=== PATIENT | female | born 1965 | race Caucasian/White ===

== ENCOUNTER 2016-10-20 17:02 | Emergency (ER) | payer OTHER ==
[2016-10-20 17:23] VITALS: RESP 18; TEMP 98; O2SAT 96
[2016-10-20] MEDS ORDERED: ONDANSETRON 4 MG/2 ML VIAL IVP ONE (17:31)
[2016-10-20] MEDS ORDERED: KETOROLAC 30 MG/1 ML SDV IVP ONE (17:31)
[2016-10-20] MEDS ORDERED: NS 1,000 ML IV ONE (17:31)
[2016-10-20] MEDS ORDERED: HYDROmorphONE/DILAUDID 1 MG/ML SYR IVP ONE (17:32)
--- NOTE | 2016-10-20 17:57 | EDPHY ---
H & P Stated Complaint: c/o migraine ZAMBRANO x 3 days- last took Imatrex/xanex @ 1300 today with out rel Time Seen by Provider: 10/20/16 17:22 HPI/ROS: This patient complains of a headache of 3 days duration that was right-sided hemicranial is now left-sided hemicranial throbbing in nature 8/10 intensity worse with movement. It is associated with photophobia and hyperacusis. The symptoms are similar to her prior migraines but usually her migraines do not last this long. She tried Imitrex at home as well as Maxalt and Xanax without relief and comes in for further evaluation. She reports associated nausea but no vomiting. ROS: No fevers or chills. No other constitutional symptoms HEENT: No recent URI symptoms or trauma. Pulmonary: No complaints Cardiovascular: No lightheadedness. No chest pain. GI: No belly pain. : No urinary symptoms Integumentary: No skin rash Neuro: No focal numbness tingling weakness. No visual changes. No confusion. Endocrine: No complaints Complete review of symptoms is otherwise negative Source: Patient Exam Limitations: No limitations - Personal History Current Tetanus Diphtheria and Acellular Pertussis (TDAP): Yes - Medical/Surgical History Hx Asthma: No Hx Chronic Respiratory Disease: No Hx Diabetes: No Hx Cardiac Disease: No Hx Renal Disease: No Hx Cirrhosis: No Hx Alcoholism: No Hx HIV/AIDS: No Hx Splenectomy or Spleen Trauma: No Other PMH: Med hx-migraines,endometriosis, gerd. surg-hysterectomy November 2014 - Family History Significant Family History: No pertinent family hx - Social History Smoking Status: Never smoked Alcohol Use: None Drug Use: None - Physical Exam Exam: Physical exam: Vital signs are normal General: Patient is in no acute distress. HEENT: Is no external evidence of trauma on exam. Eyes: Pupils are equal and reactive to light. Extraocular motions are intact. Optic fundi: Clear with no papilledema or hemorrhage. Nose atraumatic. Ears: Clear bilaterally with no hemotympanum. Oropharynx: No dental trauma or malocclusion. No intraoral lacerations. Eyes: Pupils are equal and reactive to light. Extraocular motions are intact. Optic fundi: Clear with no papilledema or hemorrhage. Lungs: Clear to auscultation bilaterally Neck: Supple no meningismus. Cardiac: Regular rate and rhythm no murmur gallop or rub. Abdomen: Soft nontender no organomegaly Neuro: GCS of 15. Cranial nerves II through XII intact. Cerebellar exam is normal as judged by symmetric rapid hand movements bilaterally. No pronator drift. No sensory or motor deficits are appreciated. Initial differential diagnosis: Migraine, tension headache, PILING SETTER lesion, intracranial bleed Constitutional: Initial Vital Signs Temperature (C) 36.6 C 10/20/16 17:21 Heart Rate 82 10/20/16 17:21 Respiratory Rate 18 10/20/16 17:21 Blood Pressure 162/108 H 10/20/16 17:21 O2 Sat (%) 96 10/20/16 17:21 O2 Delivery Mode Room Air Allergies/Adverse Reactions: prochlorperazine edisylate [From Compazine] Allergy (Severe, Verified 06/16/15 14:06) Anaphylaxis prochlorperazine maleate [From Compazine] Allergy (Severe, Verified 06/16/15 14: 06) Anaphylaxis Sulfa (Sulfonamide Antibiotics) Allergy (Mild, Verified 06/16/15 14:06) Rash bupropion HCl [From Wellbutrin] Allergy (Verified 06/16/15 14:06) SEIZURE sulfamethoxazole [From Sulfatrim] Allergy (Verified 06/16/15 14:06) tramadol Allergy (Verified 06/16/15 14:06) trimethoprim [From Sulfatrim] Allergy (Verified 06/16/15 14:06) Home Medications: Medication Instructions Recorded ALPRAZolam [Xanax 0.5 MG (RX)] 09/17/12 Cyclobenzaprine [Flexeril 10 MG 10 mg PO TID 09/17/12 (RX)] Ondansetron Odt [Zofran Odt 4 mg 09/17/12 (RX)] Oxycodone HCl [Oxecta] 7.5 mg PO 09/17/12 Sucralfate [Carafate 1 GM (*)] 09/17/12 Maxalt 06/16/15 oxyCODONE/APAP 5/325 [Percocet 1 - 2 tab PO Q6PRN PRN #18 tab 06/16/15 5/325 (*)] Maxalt 10/20/16 Medical Decision Making ED Course/Re-evaluation: Patient reports anaphylaxis to Compazine so held off on Reglan IV normal saline bolus, Toradol, Decadron 10 mg, Benadryl IV and 0.8 mg with resolution of headache down to mild discomfort. Patient is sent home in stable condition with resolution of her nausea near resolution of her headache. Discussion: Findings are clinically consistent with migraine headache improved with treatment. I find no evidence currently of PILING SETTER infection, intracranial bleed or other concerning findings. However, the patient understands need to go back to the emergency department should she have any significant worsening of her symptoms despite the treatment plan will follow up with her primary care physician or neurologist. - Data Points Medications Given: Discontinued Medications Dexamethasone (Decadron Injection) 10 mg IVP EDNOW ONE Stop: 10/20/16 18:43 Last Admin: 10/20/16 18:47 Dose: 10 mg Diphenhydramine HCl (Benadryl Injection) 50 mg IVP EDNOW ONE Stop: 10/20/16 17:32 Last Admin: 10/20/16 17:32 Dose: 50 mg Hydromorphone HCl (Dilaudid) 0.8 mg IVP EDNOW ONE Stop: 10/20/16 17:33 Last Admin: 10/20/16 17:30 Dose: 0.8 mg Sodium Chloride (Ns) 1,000 mls @ 0 mls/hr IV ONCE ONE PRN Reason: Wide Open Stop: 10/20/16 17:32 Last Admin: 10/20/16 18:18 Dose: 1,000 mls Ketorolac Tromethamine (Toradol) 30 mg IVP EDNOW ONE Stop: 10/20/16 17:32 Last Admin: 10/20/16 17:31 Dose: 30 mg Ondansetron HCl (Zofran) 4 mg IVP EDNOW ONE Stop: 10/20/16 17:32 Last Admin: 10/20/16 17:35 Dose: 4 mg Departure - Departure Disposition: Home, Routine, Self-Care Clinical Impression: Migraine Qualifiers: Migraine type: without aura Status migrainosus presence: with status migrainosus Intractability: not intractable Qualified Code(s): G43.001 - Migraine without aura, not intractable, with status migrainosus Condition: Good Instructions: Migraine Headache (ED) Additional Instructions: Diagnosis: Migraine You received Toradol, Decadron, Benadryl and Dilaudid for your migraine Plan: Drink plenty fluids Continue current medications Follow up with your primary care physician or neurologist for any ongoing symptoms. For the emergency department for any significant worsening despite the treatment plan Referrals: Akbar Guevara MD [Primary Care Provider] - As per Instructions
[2016-10-20] MEDS ORDERED: DEXAMETHASONE 10 MG/ML VIAL IVP ONE (18:42)
[2016-10-20 18:54] VITALS: BP 110/62; PULSE 78
== END 2016-10-20 19:06 | disposition home or self-care (01) ==
LOC: CED 17:02
DX: G43.001 Migraine without aura, not intractable, with status migrainosus (principal)
CPT/HCPCS: 96374; J1170; J1200; J1885; J2405

== ENCOUNTER → 2018-09-06 | Outpatient (CLI) | payer OTHER ==
[~2018-09-06] MED LIST: IOPAMIDOL (ISOVUE 370) 100 ML BTL IV ONE
== END ==
LOC: FIMAGING 11:48
PROVIDERS: ATTEND Surgery
DX: I77.79 Dissection of other specified artery (principal); I77.89 Other specified disorders of arteries and arterioles; I70.8 Atherosclerosis of other arteries; I71.2 Thoracic aortic aneurysm, without rupture
CPT/HCPCS: Q9967

== ENCOUNTER 2018-09-18 18:32 | Emergency (ER) | payer OTHER ==
--- NOTE | 2018-09-18 19:06 | EDPHY ---
H & P Time Seen by Provider: 09/18/18 18:47 HPI/ROS: CHIEF COMPLAINT: Left leg pain HISTORY OF PRESENT ILLNESS: Patient is a 53-year-old female on Plavix who presents emergency department with left leg pain and bruising over her left foot. 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 She subsequently followed up with Dr. Wilner Kemp. Dr. Kemp ordered a repeat CT angiogram of the chest and abdomen pelvis. She was found to have a mesenteric artery dissection with thrombus that appears similar to her previous images. She is also found to have an aneurysm. Because of this she was referred to Dr. Gregory from Cardiovascular surgery. Patient comes the emergency department today because she has left leg pain. Initially started inner thigh now has moved down to her calf. Pain is mild. She also noticed bruising over the dorsal aspect of her left foot. She has had no foot pain or recent trauma. No numbness or tingling. REVIEW OF SYSTEMS: 10 systems were reveiwed and are negative with the exception of the elements mentioned in the history of present illness. Past Medical/Surgical History: Includes mesenteric artery dissection, thoracic artery aneurysm, migraine, endometriosis, GERD Social history: Patient does not smoke. Smoking Status: Never smoked Physical Exam: Vitals noted GENERAL: Well-appearing, in no acute distress, alert. HEENT: Eyes normal to inspection, normal pharynx, no signs of dehydration. NECK: Normal, supple. RESPIRATORY: Clear to auscultation bilaterally, no rales, rhonchi or wheezing. CVS: Regular rate and rhythm, no rubs, murmurs, or gallops. ABDOMEN: Soft, nontender, nondistended, no organomegaly. BACK: Normal to inspection, no CVA tenderness. SKIN: Normal color, no rash, warm, dry. No pallor. EXTREMITIES: No pedal edema, no calf tenderness, no Homans sign or cords, no joint swelling. Patient has mild bruising over the dorsal aspect of her foot. This is mildly tender to palpation. There is no significant swelling. Patient has no petechiae. Brisk capillary refill. Normal DP and PT pulses. Normal popliteal pulse. Normal femoral pulse. The leg appears normal in color. It is not cold to touch. NEURO/PSYCH: Alert and oriented, normal mood and affect, normal motor sensory exam. Constitutional: Initial Vital Signs Temperature (C) 37.1 C 09/18/18 18:40 Heart Rate 73 09/18/18 18:40 Respiratory Rate 16 09/18/18 18:40 Blood Pressure 144/104 H 09/18/18 18:40 O2 Sat (%) 97 09/18/18 18:40 O2 Delivery Mode Room Air Allergies/Adverse Reactions: prochlorperazine edisylate [From Compazine] Allergy (Severe, Verified 06/16/15 14:06) Anaphylaxis prochlorperazine maleate [From Compazine] Allergy (Severe, Verified 06/16/15 14: 06) Anaphylaxis Sulfa (Sulfonamide Antibiotics) Allergy (Mild, Verified 06/16/15 14:06) Rash bupropion HCl [From Wellbutrin] Allergy (Verified 06/16/15 14:06) SEIZURE NSAIDS (Non-Steroidal Anti-Inflamma Allergy (Verified 09/18/18 18:38) sulfamethoxazole [From Sulfatrim] Allergy (Verified 06/16/15 14:06) tramadol Allergy (Verified 06/16/15 14:06) trimethoprim [From Sulfatrim] Allergy (Verified 06/16/15 14:06) Home Medications: Medication Instructions Recorded ALPRAZolam [Xanax 0.5 MG (RX)] 09/17/12 Cyclobenzaprine [Flexeril 10 MG 10 mg PO TID 09/17/12 (RX)] Ondansetron Odt [Zofran Odt 4 mg 09/17/12 (RX)] Oxycodone HCl [Oxecta] 7.5 mg PO 09/17/12 Sucralfate [Carafate 1 GM (*)] 09/17/12 Maxalt 06/16/15 oxyCODONE/APAP 5/325 [Percocet 1 - 2 tab PO Q6PRN PRN #18 tab 06/16/15 5/325 (*)] Maxalt 10/20/16 Plavix 09/18/18 Medical Decision Making - Diagnostics Imaging Results: Imaging Impressions Extremity Venous Study 09/18/18 19:07 Impression: No evidence of deep vein thrombosis. Anna Marie Pineda was notified of these findings by telephone at 7:59 PM on 2018 ED Course/Re-evaluation: In the emergency department I discussed possible etiologies with the patient. I answered all her questions. At this time I do not feel she needs a CT angiogram of her leg. An ultrasound of her left lower extremity was ordered. Ultrasound: Please refer the dictated report. No acute disease noted. I discussed the results with the patient. I answered all her questions. On recheck her leg appear normal. It was warm to touch. There is no discoloration. She had a strong DP, PT and popliteal pulse. The patient was given warnings prior to leaving. She will return with worsening symptoms. Differential Diagnosis: My differential includes but not limited to DVT, arterial dissection, arterial aneurysm, contusion Departure - Departure Disposition: Home, Routine, Self-Care Clinical Impression: Leg pain Qualifiers: Laterality: left Qualified Code(s): M79.605 - Pain in left leg Condition: Good Instructions: Leg Pain (ED) Additional Instructions: Return with increasing pain, swelling, discoloration, coolness, or any other concerns. Referrals: Akbar Guevara MD [Primary Care Provider] - 2-3 days, if not improved Wilner Kemp MD [Medical Doctor] - 2-3 days, if not improved
[2018-09-18 20:18] VITALS: BP 134/89
== END 2018-09-18 20:17 | disposition home or self-care (01) ==
DX: M79.605 Pain in left leg (principal); I70.8 Atherosclerosis of other arteries; I71.2 Thoracic aortic aneurysm, without rupture; Z79.02 Long term (current) use of antithrombotics/antiplatelets

== ENCOUNTER 2018-11-02 11:37 | Inpatient (IN) | payer OTHER ==
[2018-11-02] MEDS ORDERED: NS 1,000 ML IV ONE (12:56)
[2018-11-02] MEDS ORDERED: ASPIRIN EC 325 MG TAB PO ONE (12:56)
[2018-11-02] MEDS ORDERED: FAMOTIDINE 20 MG TAB PO ONE (12:56)
[2018-11-02] MEDS ORDERED: diphenhydrAMINE 25 MG CAP PO ONE (12:56)
[2018-11-02] MEDS ORDERED: DIAZEPAM 5 MG TAB PO ONE (12:56)
[2018-11-02] MEDS ORDERED: MIDAZOLAM 2 MG/2 ML VIAL ONE (13:04)
[2018-11-02] MEDS ORDERED: LIDOCAINE 1% 5 ML SDV ONE (13:04)
[2018-11-02] MEDS ORDERED: fentaNYL 100 MCG/2 ML INJ ONE (13:04)
[2018-11-02] MEDS ORDERED: IOPAMIDOL (ISOVUE 370) 100 ML BTL IV ONE (13:04)
[2018-11-02] MEDS ORDERED: HEPARIN 10,000 UNIT/10 ML MDV (1,000 UNIT/ML) ONE (13:20)
[2018-11-02] MEDS ORDERED: VERAPAMIL 5 MG/2 ML VIAL ONE (13:20)
[2018-11-02 13:26] LABS: PLATELET COUNT 236 10^3/uL (150-400)
[2018-11-02 13:34] LABS: INR 1.05 (0.83-1.16); PROTIME(PATIENT) 13.3 SEC (12.0-15.0)
--- NOTE | 2018-11-02 13:38 | PDPROPOC ---
Sedation Plan of Care Sedation Plan of Care: vital signs stable, mental status noted, patient educated of risks, benefits, alternatives, patient can tolerate sedation ASA Classification: ASA 1 Planned drugs: fentanyl, midazolam Mallampati Score: Class 1 Mallampati Reference Image: Patient passed 3-3-2 rule?: Yes
--- NOTE | 2018-11-02 13:38 | PDHPUP ---
History & Physical Update H&P update statement: This history and physical update is based on an assessment of the patient which was completed after admission or registration (within 24 hours), but prior to the surgery/procedure. H&P update: H&P reviewed & patient examined, no change in patient's condition since H&P completed
--- NOTE | 2018-11-02 14:51 | PDDXCAT ---
Diagnostic Cath Note - . Date: 11/02/18 Java User Interface Developer: Shaquille Indication: other (Preoperative angiogram prior to planned aortic root replacement surgery.) - Procedure Access: right wrist Procedure: left heart catheterization, coronary angiography, left ventriculogram - Materials Left Heart Cath size: 4F Left Heart Cath materials: JL3.5, JR4.0, pigtail - Findings-Left Heart Catheterization LM: Angiographically normal. Appropriate bifurcation into the LAD and circumflex. LAD: Moderate caliber vessel. 2 diagonal branches originate prior to termination at the apex. Angiographically normal. LCX: 2 obtuse marginal branches noted. Angiographically normal. RCA: Dominant vessel. The PDA is identified and a single posterolateral branch are noted.. Angiographically normal. LVEF: 65%. Wall motion: Normal. Complications: None. Estimated blood loss: <50ml Closure method: TR Band Assessment: Angiographically normal epicardial coronary arteries. Preserved left ventricular systolic function with ejection fraction 65%. Aneurysmal dilatation of the ascending aorta. Plan: There are plans for the patient to undergo aortic root replacement surgery tomorrow.
[2018-11-02] MEDS ORDERED: ATROPINE SULFATE 1 MG/10 ML SYR IVP PRN (15:09)
[2018-11-02] MEDS ORDERED: SUCRALFATE 1 GM TAB PO PRN (15:20)
[2018-11-02] MEDS ORDERED: ACETAMINOPHEN 500 MG TAB PO PRN (15:20)
[2018-11-02] MEDS ORDERED: ACET/CAFFEINE/BUTA FIORICET 1 EACH TAB PO PRN (15:20)
--- NOTE | 2018-11-02 16:19 | PDGENHP ---
History and Physical - Chief Complaint asc ao aneurysm - History of Present Illness 53F with ascending aortic aneurysm (4.4 x 4.1) discovered during hospitalization for a spontaneous SMA dissection. Pt admitted today in advance of aneurysm repair for risk stratification. Coronary angiography today revealed angiographically normal epicardial coronary arteries and a preserved left ventricular systolic function with EF 65%. Pt reports no change in health since evaluated in clinic. She states she has vague chest pain over the past 2 years which she attributes to anxiety. She denies weakness, lethargy, syncope, light- headedness, chest palpitations, SOB, PND, orthopnea, abdominal pain, or LE edema. She denies h/o chest surgery. She denies tobacco abuse. She drinks alcohol socially. History Information - Allergies/Home Medication List Allergies/Adverse Reactions: prochlorperazine edisylate [From Compazine] Allergy (Severe, Verified 11/01/18 09:50) Anaphylaxis prochlorperazine maleate [From Compazine] Allergy (Severe, Verified 11/01/18 09: 50) Anaphylaxis Sulfa (Sulfonamide Antibiotics) Allergy (Mild, Verified 11/01/18 09:50) Rash bupropion HCl [From Wellbutrin] Allergy (Verified 11/01/18 09:52) Other-Enter Comments NSAIDS (Non-Steroidal Anti-Inflamma Allergy (Verified 11/01/18 09:50) Other-Enter Comments sulfamethoxazole [From Sulfatrim] Allergy (Verified 11/01/18 09:50) Rash tramadol Allergy (Verified 11/01/18 09:52) Other-Enter Comments trimethoprim [From Sulfatrim] Allergy (Verified 11/01/18 09:50) Rash Home Medications: ALPRAZolam [Xanax 0.5 MG (*)] 0.5 mg PO BID PRN 11/01/18 [Last Taken Unknown] Acet/Caffeine/Buta Fioricet [Fioricet (*)] 1 each PO Q6 PRN 11/01/18 [Last Taken Unknown] Acetaminophen [Tylenol ES 500 mg (*)] 1,000 mg PO Q6 PRN 11/01/18 [Last Taken Unknown] Acyclovir [Zovirax 400 mg (*)] 400 mg PO BID 11/01/18 [Last Taken Unknown] Calcium Carbonate [Tums 500MG (*)] 500 mg PO TID PRN 11/01/18 [Last Taken Unknown] Cyclobenzaprine [Flexeril 10 MG (*)] 10 mg PO TID PRN 11/01/18 [Last Taken Unknown] Herbals/Supplements -Info Only 1 ea PO DAILY 11/01/18 [Last Taken Unknown] Propranolol HCl [Inderal 10mg (*)] 10 - 20 mg PO TID PRN 11/01/18 [Last Taken Unknown] Rizatriptan Benzoate [Maxalt] 10 mg PO DAILY PRN 11/01/18 [Last Taken Unknown] Sucralfate [Carafate 1 GM (*)] 1 gm PO ACHS PRN 11/01/18 [Last Taken Unknown] oxyCODONE IR [Oxycodone Ir (*)] 5 mg PO Q6HRS PRN 11/01/18 [Last Taken Unknown] I have personally reviewed and updated: family history, medical history, social history, surgical history - Past Medical History Additional medical history: as per HPI, headaches - Surgical History Reports: no pertinent surgical hx - Social History Smoking Status: Never smoked Alcohol Use: Occasionally Review of Systems Review of Systems: ROS: 10pt was reviewed & negative except for what was stated in HPI & below Physical Exam Physical Exam: Constitutional: no apparent distress, appears nourished, not in pain Eyes: anicteric sclera Ears, Nose, Mouth, Throat: moist mucous membranes, hearing normal, ears appear normal Cardiovascular: regular rate and rhythym, no murmur, rub, or gallop Respiratory: no respiratory distress, no rales or rhonchi, clear to auscultation Gastrointestinal: soft, non-tender abdomen Skin: warm, normal color Musculoskeletal: full muscle strength Neurologic: AAOx3 Psychiatric: interacting appropriately, not anxious, not encephalopathic, thought process linear Lab Data & Imaging Review 11/02/18 13:15 11/02/18 13:15 WBC 4.42 10^3/uL (3.80-9.50) 11/02/18 13:15 RBC 4.94 10^6/uL (4.18-5.33) 11/02/18 13:15 Hgb 16.1 g/dL (12.6-16.3) 11/02/18 13:15 Hct 46.5 % (38.0-47.0) 11/02/18 13:15 MCV 94.1 fL (81.5-99.8) 11/02/18 13:15 MCH 32.6 pg (27.9-34.1) 11/02/18 13:15 MCHC 34.6 g/dL (32.4-36.7) 11/02/18 13:15 RDW 12.3 % (11.5-15.2) 11/02/18 13:15 Plt Count 236 10^3/uL (150-400) 11/02/18 13:15 MPV 9.2 fL (8.7-11.7) 11/02/18 13:15 Neut % (Auto) 59.0 % (39.3-74.2) 11/02/18 13:15 Lymph % (Auto) 29.4 % (15.0-45.0) 11/02/18 13:15 Morton % (Auto) 9.3 % (4.5-13.0) 11/02/18 13:15 Eos % (Auto) 1.1 % (0.6-7.6) 11/02/18 13:15 Baso % (Auto) 0.5 % (0.3-1.7) 11/02/18 13:15 Nucleat RBC Rel Count 0.0 % (0.0-0.2) 11/02/18 13:15 Absolute Neuts (auto) 2.61 10^3/uL (1.70-6.50) 11/02/18 13:15 Absolute Lymphs (auto) 1.30 10^3/uL (1.00-3.00) 11/02/18 13:15 Absolute Monos (auto) 0.41 10^3/uL (0.30-0.80) 11/02/18 13:15 Absolute Eos (auto) 0.05 10^3/uL (0.03-0.40) 11/02/18 13:15 Absolute Basos (auto) 0.02 10^3/uL (0.02-0.10) 11/02/18 13:15 Absolute Nucleated RBC 0.00 10^3/uL (0-0.01) 11/02/18 13:15 Immature Gran % 0.7 % (0.0-1.1) 11/02/18 13:15 Immature Gran # 0.03 10^3/uL (0.00-0.10) 11/02/18 13:15 PT 13.3 SEC (12.0-15.0) 11/02/18 13:15 INR 1.05 (0.83-1.16) 11/02/18 13:15 Sodium 136 mEq/L (135-145) 11/02/18 13:15 Potassium 4.1 mEq/L (3.5-5.2) 11/02/18 13:15 Chloride 104 mEq/L (97-110) 11/02/18 13:15 Carbon Dioxide 25 mEq/l (22-31) 11/02/18 13:15 Anion Gap 7 mEq/L (6-14) 11/02/18 13:15 BUN 12 mg/dL (7-23) 11/02/18 13:15 Creatinine 0.6 mg/dL (0.6-1.0) 11/02/18 13:15 Estimated GFR > 60 11/02/18 13:15 Glucose 76 mg/dL (70-100) 11/02/18 13:15 Hemoglobin A1c 4.9 % (4.0-6.0) 11/02/18 13:15 Estim Average Glucose 94 mg/dL (68-126) 11/02/18 13:15 Calcium 9.0 mg/dL (8.5-10.4) 11/02/18 13:15 Magnesium 2.1 mg/dL (1.6-2.3) 11/02/18 13:15 Triglycerides 159 mg/dL (35-135) H 11/02/18 13:15 Cholesterol 234 mg/dL (140-220) H 11/02/18 13:15 Cholesterol Risk Factr 0.5 (0.2-1.0) 11/02/18 13:15 LDL Cholesterol, Calc 120 mg/dL (80-100) H 11/02/18 13:15 LDL Risk Factor 0.5 (0.2-1.0) 11/02/18 13:15 VLDL Cholesterol 32 mg/dL (8-25) H 11/02/18 13:15 Non-HDL Cholesterol 152 mg/dL (90-129) H 11/02/18 13:15 HDL Cholesterol 82 mg/dL (40-85) 11/02/18 13:15 LDL/HDL Ratio 1.47 RATIO (1.00-3.22) 11/02/18 13:15 Cholesterol/HDL Ratio 2.85 RATIO (1.00-4.44) 11/02/18 13:15 Patient ABO/Rh O POSITIVE 11/02/18 13:15 Antibody Screen NEGATIVE 11/02/18 13:15 Visualized and Interpreted Chest x-ray results: Yes Chest X-Ray results: no infiltrate Visualized and Interpreted imaging results: Yes Interpretation: no CAD, normal EF Visualized and Interpreted EKG results: Yes EKG Interpretation: Positive for: normal sinsus rhythm Assessment & Plan Assessment: Ascending aortic aneurysm Plan: for repair 11/03
[2018-11-02] MEDS: CALCIUM CARBONATE 500 MG CHEWABLE TAB PO PRN (17:51)
[2018-11-02] MEDS ORDERED: CHLORHEXIDINE GLUC HIBICLENS 118 ML BTL TP SCH (21:00)
[2018-11-02] MEDS: MUPIROCIN 2% 22 GM OINT NS SCH (21:44)
[2018-11-02] MEDS: ACYCLOVIR 400 MG TAB PO SCH (21:44)
[2018-11-02] MEDS: SENNOSIDES/DOCUSATE SODIUM TAB PO SCH (21:44)
[2018-11-02] MEDS: ALPRAZolam 0.5 MG TAB PO PRN (22:17)
[2018-11-03] MEDS ORDERED: LR 1,000 ML IV ONE ×2 (05:47→07:42)
[2018-11-03] MEDS ORDERED: AMINOCAPROIC ACID 5 GM/20 ML VIAL IV ONE (06:00)
[2018-11-03] MEDS ORDERED: MANNITOL 25% 12.5 GM/50 ML VIAL IVP ONE (06:00)
[2018-11-03] MEDS ORDERED: NOREPINEPHRINE BITARTRATE 16 MG in NS 250 ML IV ONE (06:00)
[2018-11-03] MEDS ORDERED: ceFAZolin 2 GM/DEXTROSE 100 ML IV ONE (06:00)
[2018-11-03] MEDS ORDERED: PHENYLEPHRINE HCL 50 MG in NS 250 ML IV ONE (06:00)
[2018-11-03] MEDS ORDERED: CITRATE DEXTROSE SOLN 500 ML BAG MISC ONE (06:00)
[2018-11-03] MEDS ORDERED: CARDIOPLEGIC SOLUTION 1,052.8 ML PF ONE (06:00)
[2018-11-03] MEDS ORDERED: INSULIN REGULAR HUMAN 100 UNIT in NS 100 ML IV ONE (06:00)
[2018-11-03] MEDS ORDERED: niCARdipine/NACL 200 ML IV ONE (06:00)
[2018-11-03] MEDS ORDERED: MILRINONE/DEXTROSE/100 ML BAG IV ONE (07:33)
[2018-11-03] MEDS ORDERED: PROTAMINE SULFATE 50 MG/5 ML VIAL IVP ONE (07:33)
[2018-11-03] MEDS ORDERED: CALCIUM CHLORIDE 1 GM/10 ML INJ ONE ×3 (07:33→07:39)
[2018-11-03] MEDS ORDERED: AMINOCAPROIC ACID 5 GM/20 ML VIAL ONE ×2 (07:33→07:39)
[2018-11-03] MEDS ORDERED: niCARdipine/NACL/200 ML BAG IV ONE (07:34)
[2018-11-03] MEDS ORDERED: HEPARIN 10,000 UNIT/10 ML MDV (1,000 UNIT/ML) ONE ×2 (07:34→07:39)
[2018-11-03] MEDS ORDERED: DOPamine/DEXTROSE 400 MG/250 ML BAG IV ONE (07:34)
[2018-11-03] MEDS ORDERED: NA BICARBONATE 50 MEQ/50 ML VIAL ONE (07:34)
[2018-11-03] MEDS ORDERED: ceFAZolin 1 GM VIAL ONE (07:35)
[2018-11-03] MEDS ORDERED: ADENOSINE 6 MG/2 ML VIAL ONE (07:35)
[2018-11-03] MEDS ORDERED: NITROGLYCERIN/D5W 50 MG/250 ML BOTTLE IV ONE (07:35)
[2018-11-03] MEDS ORDERED: AMIODARONE HCL 150 MG/3 ML VIAL ONE ×2 (07:35→07:40)
[2018-11-03] MEDS ORDERED: ALBUMIN 5% 250 ML BOTTLE IV ONE ×2 (07:38→11:43)
[2018-11-03] MEDS ORDERED: LIDOCAINE 2% 100 MG/5 ML SYR ONE (07:39)
[2018-11-03] MEDS ORDERED: methylPREDNISolone SOD SUCC 1 GM/8 ML VIAL ONE (07:40)
[2018-11-03] MEDS ORDERED: MAGNESIUM SULFATE 1 GM/2 ML VIAL ONE (07:40)
[2018-11-03] MEDS ORDERED: CITRATE DEXTROSE SOLN 500 ML BAG ONE (07:40)
[2018-11-03] MEDS ORDERED: MIDAZOLAM 2 MG/2 ML VIAL IVP ONE (08:09)
--- NOTE | 2018-11-03 08:12 | PDANEPAE ---
ANE History of Present Illness asc aortic aneurys ANE Past Medical History - Cardiovascular History Hx Hypertension: No Hx Arrhythmias: No Hx Chest Pain: Yes Hx Coronary Artery / Peripheral Vascular Disease: No Hx CHF / Valvular Disease: Yes Hx Palpitations: No Cardiovascular History Comment: PAST FEW YEARS - Pulmonary History Hx COPD: No Hx Asthma/Reactive Airway Disease: No Hx Recent Upper Respiratory Infection: No Hx Oxygen in Use at Home: No Hx Sleep Apnea: No Sleep Apnea Screening Result - Last Documented: Negative - Neurologic History Hx Cerebrovascular Accident: No Hx Seizures: Yes Hx Dementia: No Neurologic History Comment: TIA VS SEIZURE 2008. ? MEDICATION RELATED - Endocrine History Hx Diabetes: No Hypothyroid: No Hyperthyroid: No Obesity: no Endocrine History Comment: ON THYROID RX UNTIL 2 MONTHS AGO - Renal History Hx Renal Disorders: No - Liver History Hx Hepatic Disorders: No - Neurological & Psychiatric Hx Hx Neurological and Psychiatric Disorders: Yes Neurological / Psychiatric History Comment: MIGRAINES WEEKLY. ANXIETY - Cancer History Hx Cancer: Yes Cancer History Comment: THORACIC AREA SARCOMA - Congenital Disorder History Hx Congenital Disorders: No - GI History GERD: mild Hx Gastrointestinal Disorders: Yes Gastrointestinal History Comment: HEARTBURN USES TUMS - Other Health History Other Health History: ENDOMETROSIS. HOT FLASHES. INSOMNIA. CERVICAL DISC DX - Chronic Pain History Chronic Pain: Yes (NECK) - Surgical History Prior Surgeries: SUPERIOR MESENTERIC ARTERY DISSECTION. HYSTERECTOMY 2015. UTERINE ABLATION 2012. UPPER AND LOWER LID BLEP. EGD. SIGMOIDOSCOPY. DX LAP ENDOMETROSIS. REMVL OF MASS THORACIC AREA SARCOMA. SCAR REVISION THORACIC ANE Review of Systems Review of Systems: - Exercise capacity Exercise capacity: <4 METS METS (RN): 3 METS ANE Patient History - Allergies Allergies/Adverse Reactions: prochlorperazine edisylate [From Compazine] Allergy (Severe, Verified 11/01/18 09:50) Anaphylaxis prochlorperazine maleate [From Compazine] Allergy (Severe, Verified 11/01/18 09: 50) Anaphylaxis Sulfa (Sulfonamide Antibiotics) Allergy (Mild, Verified 11/01/18 09:50) Rash bupropion HCl [From Wellbutrin] Allergy (Verified 11/01/18 09:52) Other-Enter Comments NSAIDS (Non-Steroidal Anti-Inflamma Allergy (Verified 11/01/18 09:50) Other-Enter Comments sulfamethoxazole [From Sulfatrim] Allergy (Verified 11/01/18 09:50) Rash tramadol Allergy (Verified 11/01/18 09:52) Other-Enter Comments trimethoprim [From Sulfatrim] Allergy (Verified 11/01/18 09:50) Rash - Home Medications Home Medications: ALPRAZolam [Xanax 0.5 MG (*)] 0.5 mg PO BID PRN 11/01/18 [Last Taken Unknown] Acet/Caffeine/Buta Fioricet [Fioricet (*)] 1 each PO Q6 PRN 11/01/18 [Last Taken Unknown] Acetaminophen [Tylenol ES 500 mg (*)] 1,000 mg PO Q6 PRN 11/01/18 [Last Taken Unknown] Acyclovir [Zovirax 400 mg (*)] 400 mg PO BID 11/01/18 [Last Taken Unknown] Calcium Carbonate [Tums 500MG (*)] 500 mg PO TID PRN 11/01/18 [Last Taken Unknown] Cyclobenzaprine [Flexeril 10 MG (*)] 10 mg PO TID PRN 11/01/18 [Last Taken Unknown] Herbals/Supplements -Info Only 1 ea PO DAILY 11/01/18 [Last Taken Unknown] Propranolol HCl [Inderal 10mg (*)] 10 - 20 mg PO TID PRN 11/01/18 [Last Taken Unknown] Rizatriptan Benzoate [Maxalt] 10 mg PO DAILY PRN 11/01/18 [Last Taken Unknown] Sucralfate [Carafate 1 GM (*)] 1 gm PO ACHS PRN 11/01/18 [Last Taken Unknown] oxyCODONE IR [Oxycodone Ir (*)] 5 mg PO Q6HRS PRN 11/01/18 [Last Taken Unknown] - NPO status NPO Since - Liquids (Date): 11/02/18 NPO Since - Liquids (Time): 00:00 NPO Since - Solids (Date): 11/02/18 NPO Since - Solids (Time): 00:00 - Smoking Hx Smoking Status: Never smoked - Alcohol Use Alcohol Use: Occasionally ANE Labs/Vital Signs - Labs Result Diagrams: 11/02/18 13:15 11/03/18 03:18 - Vital Signs Blood Pressure: 117/65 Heart Rate: 65 Respiratory Rate: 18 O2 Sat (%): 96 Height: 166.37 cm Weight: 58.4 kg ANE Physical Exam - Airway Mallampati Score: Class 2 Mouth exam: normal dental/mouth exam - Pulmonary Pulmonary: no respiratory distress - Cardiovascular Cardiovascular: regular rate and rhythym - ASA Status ASA Status: II ANE Anesthesia Plan Anesthesia Plan: general endotracheal anesthesia Lines/Monitors: arterial line, central line, MARGE
[2018-11-03] MEDS ORDERED: SUCCINYLCHOLINE CHLORIDE 200 MG/10 ML SYR IVP ONE (08:35)
[2018-11-03] MEDS ORDERED: PHENYLEPHRINE 10 MG/ML SDV ONE (08:35)
[2018-11-03] MEDS ORDERED: EPINEPHrine 1 MG/ML INJ ONE (08:35)
[2018-11-03] MEDS ORDERED: ROCURONIUM 100 MG/10 ML VIAL ONE (08:35)
[2018-11-03] MEDS ORDERED: PROPOFOL 200 MG/20 ML VIAL ONE (08:40)
[2018-11-03] MEDS ORDERED: LIDOCAINE 2% 5 ML SDV ONE (08:40)
[2018-11-03] MEDS ORDERED: fentaNYL 250 MCG/5 ML INJ ONE ×2 (08:40)
--- NOTE | 2018-11-03 09:07 | ASMTCMCOM ---
CM Note CM Note Notes: Pt is a 53 yo F is going for repair of ascending aortic aneurysm. will likely go to ICU after surgery. Discharge needs TBD. Plan: TBD Date Signed: 11/03/2018 09:05 AM Electronically Signed By:VINAYAK Gibson
[2018-11-03] MEDS ORDERED: MIDAZOLAM 2 MG/2 ML VIAL ONE ×2 (10:42→12:01)
[2018-11-03] MEDS ORDERED: ESMOLOL HCL 100 MG/10 ML VIAL IV ONE (11:24)
[2018-11-03] MEDS ORDERED: MINERAL OIL 10 ML VIAL ONE (11:35)
[2018-11-03] MEDS ORDERED: SUGAMMADEX SODIUM 200 MG/2 ML VIAL IVP ONE (11:55)
--- NOTE | 2018-11-03 12:17 | PDMN ---
Medical Necessity Medical necessity: Pt meets inpt criteria per MD order MCG S-140, Aortic Aneurysm, Thoracic, Repair with Graft, MCR IP only list, 5 days. 53 y/o admitted for ascending AO replacement, aortic valve repair, L atrial appendage ligation, and post-op care, anticipate>2MN.
[2018-11-03] MEDS ORDERED: MEPERIDINE 25 MG/0.5 ML AMP IVP PRN (12:19)
[2018-11-03] MEDS ORDERED: SODIUM CL NASAL 45 ML BTL EACHNARE PRN (12:19)
[2018-11-03] MEDS ORDERED: ONDANSETRON DISINTEGRATING 4 MG TAB PO PRN (12:19)
[2018-11-03] MEDS ORDERED: MAGNESIUM HYDROXIDE 30 ML UDCUP PO PRN (12:19)
[2018-11-03] MEDS ORDERED: fentaNYL 100 MCG/2 ML INJ IVP PRN (12:19)
[2018-11-03] MEDS ORDERED: POLYETHYLENE GLYCOL 3350 17 GM PKT PO PRN (12:19)
[2018-11-03] MEDS ORDERED: BISACODYL 10 MG SUPP PR PRN (12:19)
[2018-11-03] MEDS ORDERED: ACETAMINOPHEN 650 MG SUPP PR PRN (12:19)
[2018-11-03] MEDS ORDERED: METOCLOPRAMIDE 10 MG/2 ML VIAL IVP PRN (12:19)
[2018-11-03] MEDS ORDERED: PANTOPRAZOLE SODIUM 40 MG VIAL IVP ONE (12:19)
[2018-11-03] MEDS ORDERED: D50W 25 GM/50 ML SYR IVP PRN (12:19)
[2018-11-03] MEDS ORDERED: CEPACOL LOZENGE PO PRN (12:19)
[2018-11-03] MEDS ORDERED: ALBUMIN 5% 250 ML IV PRN (12:19)
[2018-11-03] MEDS ORDERED: LACTULOSE 20 GM/30 ML UDCUP PO PRN (12:19)
[2018-11-03] MEDS ORDERED: NS 1,000 ML IV SCH (12:30)
[2018-11-03] MEDS ORDERED: INSULIN REGULAR HUMAN 100 UNIT in NS 100 ML IV SCH (12:30)
[2018-11-03] MEDS ORDERED: niCARdipine/NACL 200 ML IV SCH (12:30)
[2018-11-03] MEDS ORDERED: NALOXONE HCL 0.4 MG/ML INJ IVP PRN (12:39)
[2018-11-03] MEDS ORDERED: KETOROLAC 30 MG/1 ML SDV ONE (12:39)
--- NOTE | 2018-11-03 12:39 | POSTANESTH ---
Post Anesthetic Evaluation Cardiovascular Status: Normal, Stable Respiratory Status: Normal, Stable Level of Consciousness/Mental Status: Can Participate in Eval Pain Control: Adequate, Prn Tx Ordered Nausea/Vomiting Control: Adequate, Prn Tx Ordered Complications Possibly Related to Anesthesia: None Noted
[2018-11-03] MEDS ORDERED: KETOROLAC 30 MG/1 ML SDV IVP ONE (12:40)
[2018-11-03] MEDS: SENNOSIDES/DOCUSATE SODIUM TAB PO SCH ×2 (12:49→21:47)
[2018-11-03] MEDS: MUPIROCIN 2% 22 GM OINT NS SCH ×2 (12:49→21:46)
[2018-11-03] MEDS: ACYCLOVIR 400 MG TAB PO SCH ×2 (12:49→22:10)
--- NOTE | 2018-11-03 13:12 | GOP ---
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 PROCEDURE PERFORMED: 1. Replacement of the ascending aorta with a 22 mm Hemashield graft. 2. Reduction of the sinotubular junction with repair of the aortic valve and elimination of central regurgitation. 3. AtriClip to the left atrial appendage. FINDINGS: This patient presented with spontaneous mesenteric dissection. CT scan revealed an ascend ing aorta that was greater than twice the size of the descending thoracic aorta because of her histor y of dissection. For that reason, I offered her elective surgery. She also had central moderate aor tic insufficiency with a trileaflet valve. DESCRIPTION OF PROCEDURE: She was consented, brought to the operating room, intubated. Monitoring l jacqueline were placed. She was prepped and draped in sterile classical manner. A sternotomy was performe d. She was heparinized, cannulated. The ascending aortic root was markedly enlarged given this mony ent's very small size, and it had a bluish discoloration to it consistent with a very thin-walled pro ximal ascending aorta at the sinotubular junction. She was heparinized, cannulated in the transverse arch and right atrium. Bypass was begun. Cardioplegic arrest was obtained with del Nido solution a dministered antegrade and down the coronary arteries directly once the aorta was excised, topical hyp othermia and systemic cooling as well. We then excised the aorta from the sinotubular junction to th e base of the innominate artery. The patient sized for a 24 mm sinotubular graft based on sizing, an d I then downsized it to 22 in order to restore competence to her aortic valve. There were no fenest rations, and the leaflets appeared to be relatively normal but splayed out due to the aneurysm as the likely cause of her insufficiency. There was no obvious single leaflet prolapse. The tissues were very friable and extremely thin walled in the ascending aorta. A 22 mm Hemashield graft was fashione d in place and secured with felt on the anastomotic side on the aorta and then wrapped with additiona l graft up into the arch to prevent further expansion or false aneurysm formation on the distal anast omosis. We then placed a 35 mm clip across the base of the left atrial appendage. She was placed in Trendelenburg. The crossclamp was removed with suction on the ascending aortic vent. Spontaneous c ardiac activity was noted to resume. She was weaned from bypass. There was absolutely no regurgitat ion from the aortic valve at that point. Heparin was reversed with protamine. Cannula was removed a nd oversewn. Two ventricular pacing wires, 2 mediastinal drains were placed. The thymic fat and per icardium were closed. Chest was closed in standard fashion. Patient was returned to ICU in stable c ondition. /[id number]/MODL
[2018-11-03] MEDS ORDERED: METOCLOPRAMIDE 10 MG/2 ML VIAL ONE (13:29)
[2018-11-03] MEDS ORDERED: ONDANSETRON 4 MG/2 ML VIAL ONE (13:30)
[2018-11-03] MEDS: POTASSIUM Cl (KCl) 50 ML IV PRN ×2 (13:58→13:59)
[2018-11-03] MEDS: ONDANSETRON 4 MG/2 ML VIAL IVP PRN ×2 (14:22→20:26)
[2018-11-03] MEDS: HYDROCODONE/APAP 5/325 TAB PO PRN ×3 (14:27→20:27)
[2018-11-03] MEDS: ceFAZolin 2 GM/DEXTROSE 100 ML IV SCH ×2 (14:38→22:10)
--- NOTE | 2018-11-03 14:43 | CPEKG ---
Test Reason : OPEN Blood Pressure : / mmHG Vent. Rate : 062 BPM Atrial Rate : 063 BPM P-R Int : 176 ms QRS Dur : 094 ms QT Int : 411 ms P-R-T Axes : 061 -44 051 degrees QTc Int : 418 ms Sinus rhythm Left atrial enlargement Left axis deviation Confirmed by Ian Salazar ([id number]) on 11/03/2018 2:43:12 PM Referred By: Miguel Corbin Confirmed By:Ian Salazar
[2018-11-03] MEDS: ALPRAZolam 0.5 MG TAB PO PRN ×2 (15:03→22:10)
[2018-11-04] MEDS: CYCLOBENZAPRINE 10 MG TAB PO PRN (00:09)
[2018-11-04] MEDS: HYDROCODONE/APAP 5/325 TAB PO PRN ×4 (00:09→15:46)
[2018-11-04] MEDS: ceFAZolin 2 GM/DEXTROSE 100 ML IV SCH ×3 (05:17→21:55)
[2018-11-04 05:46] LABS: PLATELET COUNT 162 10^3/uL (150-400)
[2018-11-04] MEDS: HEPARIN 5,000 UNIT/0.5 ML INJ SC SCH ×3 (06:20→21:54)
--- NOTE | 2018-11-04 07:01 | SOAPPROG ---
SOAP Progress Note Assessment/Plan: POD#1 s/p Replacement of Asc Ao w 22mm Hemashield graft; reduction of STJ with AV repair; AtriClip IRWIN Ascending aortic aneurysm 4.1 x 4 cm s/p resection and grafting -assoc AI with STJ reduction and AV repair; intra-op MARGE wo AI -preserved EF at 65% & normal coronaries preop -concern noted in OR regarding possible connective tissue disorder - plan for CTA head r/o aneurysm this hospitalization and genetic testing as o/p -TTE closer to discharge Spontaneous SMA dissection Jul 2018 -pre-op Plavix - Dr. Gregory to discuss with general surgeon long-term Plavix therapy and will be held in the meantime -ASA held given history of gastric ulcer Acute blood loss anemia -stable wo need of transfusion DVT PPx -SCDs, heparin Dispo Chest tubes to bulbs Wrap/cap V wires Start BB PTOT to eval/treat IV diuresis CTA Head Tuesday assuming Cr stable Transfer to PCU Subjective: Pain Objective: Vital Signs Temp Pulse Resp BP Pulse Ox 36.7 C 96 14 113/78 95 11/04/18 05:36 11/04/18 06:00 11/04/18 06:00 11/04/18 06:00 11/04/18 06:00 Laboratory Results 11/04/18 05:20 11/04/18 05:20 11/03/18 11/04/18 11/05/18 05:59 05:59 05:59 Intake Total 1000 2898 Output Total 900 1460 Balance 100 1438 PT 13.3 SEC (12.0-15.0) 11/02/18 13:15 INR 1.05 (0.83-1.16) 11/02/18 13:15 - Physical Exam General Appearance: alert, no apparent distress Respiratory: lungs clear (grossly) Cardiac/Chest: regular rate, rhythm, other (Sternotomy CDI. ) Abdomen: soft, other (hypoactive BS) Skin: warm/dry Extremities: swelling (trace) ICD10 Worksheet Patient Problems: Problems Problem Status Onset Acute blood loss anemia Acute Aortic insufficiency Acute Coronary artery disease (CAD) excluded Acute S/P ascending aortic aneurysm repair Acute Ascending aortic aneurysm Chronic
[2018-11-04] MEDS: ACYCLOVIR 400 MG TAB PO SCH ×2 (08:01→20:20)
[2018-11-04] MEDS: oxyCODONE IR 5 MG TAB PO PRN ×3 (08:01→22:50)
[2018-11-04] MEDS: ASPIRIN 81 MG CHEWABLE TAB PO SCH ×2 (08:01→08:14)
[2018-11-04] MEDS: SENNOSIDES/DOCUSATE SODIUM TAB PO SCH ×2 (08:02→20:19)
[2018-11-04] MEDS: PANTOPRAZOLE SODIUM 40 MG TAB PO SCH (08:02)
[2018-11-04] MEDS: MUPIROCIN 2% 22 GM OINT NS SCH ×2 (08:02→20:19)
[2018-11-04] MEDS ORDERED: FUROSEMIDE 20 MG/2 ML VIAL IVP ONE (08:56)
[2018-11-04] MEDS ORDERED: ACETAMINOPHEN 325 MG TAB PO PRN (09:39)
[2018-11-04] MEDS: METOPROLOL TARTRATE 25 MG TAB PO SCH ×2 (10:14→20:19)
[2018-11-04] MEDS ORDERED: KETOROLAC 15 MG/1 ML SDV IVP ONE (17:25)
[2018-11-04] MEDS: ONDANSETRON 4 MG/2 ML VIAL IVP PRN (17:28)
[2018-11-04] MEDS: CALCIUM CARBONATE 500 MG CHEWABLE TAB PO PRN (18:08)
[2018-11-05] MEDS: HYDROCODONE/APAP 5/325 TAB PO PRN ×3 (02:56→17:33)
[2018-11-05] MEDS: oxyCODONE IR 5 MG TAB PO PRN ×3 (04:22→20:18)
[2018-11-05 05:12] LABS: PLATELET COUNT 143 10^3/uL (150-400)
[2018-11-05] MEDS: HEPARIN 5,000 UNIT/0.5 ML INJ SC SCH ×3 (05:40→23:30)
--- NOTE | 2018-11-05 07:26 | SOAPPROG ---
SOAP Progress Note Assessment/Plan: POD#2 s/p Replacement of Asc Ao w 22mm Hemashield graft; reduction of STJ with AV repair; AtriClip IRWIN Ascending aortic aneurysm 4.1 x 4 cm s/p resection and grafting -assoc AI with STJ reduction and AV repair; intra-op MARGE wo AI -preserved EF at 65% & normal coronaries preop -concern noted in OR regarding possible connective tissue disorder - plan for CTA head r/o aneurysm this hospitalization and genetic testing as o/p -TTE closer to discharge -afib ppx with BB Spontaneous SMA dissection Jul 2018 -pre-op Plavix - Dr. Gregory to discuss with general surgeon long-term Plavix therapy and will be held in the meantime -ASA held given history of gastric ulcer Acute blood loss anemia -stable wo need of transfusion Hypervolemic hyponatremia -Na drop from 131 to 125. Strict fluid restriction. DVT PPx -SCDs, heparin Dispo CTA Head Tuesday assuming Cr stable Fluid restriction Will d/w Bri adding PRN toradol Anticipate TCPW out tomorrow CT to remain Subjective: Right chest pain yesterday relieved with toradol Objective: Vital Signs Temp Pulse Resp BP Pulse Ox 36.4 C 85 18 104/67 95 11/05/18 07:02 11/05/18 07:02 11/05/18 07:02 11/05/18 07:02 11/05/18 07:02 Laboratory Results 11/05/18 04:50 11/05/18 04:50 11/04/18 11/05/18 11/06/18 05:59 05:59 05:59 Intake Total 2898 1450 Output Total 1460 2215 Balance 1438 -765 PT 13.3 SEC (12.0-15.0) 11/02/18 13:15 INR 1.05 (0.83-1.16) 11/02/18 13:15 - Physical Exam General Appearance: alert, no apparent distress Respiratory: lungs clear (grossly) Cardiac/Chest: regular rate, rhythm, other (Sternotomy CDI. ) Abdomen: soft, other (hypoactive BS) Skin: warm/dry Extremities: swelling (trace) Chest tube serosang, 155/150 and 50/110 ICD10 Worksheet Patient Problems: Problems Problem Status Onset Acute blood loss anemia Acute Aortic insufficiency Acute Coronary artery disease (CAD) excluded Acute S/P ascending aortic aneurysm repair Acute Ascending aortic aneurysm Chronic
[2018-11-05] MEDS: ACYCLOVIR 400 MG TAB PO SCH ×2 (08:42→20:18)
[2018-11-05] MEDS: METOPROLOL TARTRATE 25 MG TAB PO SCH ×2 (08:42→20:19)
[2018-11-05] MEDS: SENNOSIDES/DOCUSATE SODIUM TAB PO SCH ×2 (08:43→20:19)
[2018-11-05] MEDS: MUPIROCIN 2% 22 GM OINT NS SCH (08:43)
[2018-11-05] MEDS: PANTOPRAZOLE SODIUM 40 MG TAB PO SCH (08:43)
[2018-11-05] MEDS ORDERED: FUROSEMIDE 20 MG/2 ML VIAL IVP ONE ×2 (09:22→17:00)
[2018-11-05] MEDS: NS 1,000 ML IV SCH (10:10)
[2018-11-05] MEDS: KETOROLAC 15 MG/1 ML SDV IVP PRN (11:43)
[2018-11-05] MEDS: CALCIUM CARBONATE 500 MG CHEWABLE TAB PO PRN ×2 (11:43→20:42)
--- NOTE | 2018-11-05 17:10 | ASMTCMCOM ---
CM Note CM Note Notes: Patient discussed during clinical rounds, pending CTA head tomorrow. PT recommending Outpatient rehab. Patient will likely discharge home independent with support. CM to follow. D/C Plan: independent Date Signed: 11/05/2018 05:09 PM Electronically Signed By:Rubina Vera
[2018-11-06] MEDS: NS 1,000 ML IV SCH (00:15)
[2018-11-06] MEDS: oxyCODONE IR 5 MG TAB PO PRN ×3 (03:04→19:51)
[2018-11-06] MEDS: ALPRAZolam 0.5 MG TAB PO PRN (03:07)
[2018-11-06] MEDS: HEPARIN 5,000 UNIT/0.5 ML INJ SC SCH ×3 (05:30→22:32)
[2018-11-06] MEDS: traMADol 50 MG TAB PO PRN (05:46)
[2018-11-06] MEDS: CYCLOBENZAPRINE 10 MG TAB PO PRN (05:46)
[2018-11-06] MEDS ORDERED: POTASSIUM CL 20 MEQ TAB PO ONE (07:40)
--- NOTE | 2018-11-06 08:40 | SOAPPROG ---
SOAP Progress Note Assessment/Plan: POD#3 s/p Replacement of Asc Ao w 22mm Hemashield graft; reduction of STJ with AV repair; AtriClip IRWIN Ascending aortic aneurysm 4.1 x 4 cm s/p resection and grafting -assoc AI with STJ reduction and AV repair; intra-op MARGE wo AI -preserved EF at 65% & normal coronaries preop -concern noted in OR regarding possible connective tissue disorder - plan for CTA head r/o aneurysm this hospitalization and genetic testing as o/p -TTE tomorrow -afib ppx with BB, TCPW out Spontaneous SMA dissection Jul 2018 -pre-op Plavix - Dr. Gregory to discuss with general surgeon long-term Plavix therapy and will be held in the meantime -ASA held given history of gastric ulcer Acute blood loss anemia -stable wo need of transfusion Hypervolemic hyponatremia -Cont fluid restriction -125->132 with IVF and BID lasix DVT PPx -SCDs, heparin Dispo CTA Head today r/o aneurysm CT out TTE tomorrow ordered Supplement K Recheck BMP tomorrow Anticipate home Tuesday +/- oxygen Subjective: Slept poor but yesterday went well. Objective: Vital Signs Temp Pulse Resp BP Pulse Ox 36.9 C 91 18 105/71 94 11/06/18 08:00 11/06/18 08:00 11/06/18 08:00 11/06/18 08:00 11/06/18 08:00 Laboratory Results 11/05/18 04:50 11/06/18 03:29 11/05/18 11/06/18 11/07/18 05:59 05:59 05:59 Intake Total 1450 2821 Output Total 2215 2380 600 Balance -765 441 -600 PT 13.3 SEC (12.0-15.0) 11/02/18 13:15 INR 1.05 (0.83-1.16) 11/02/18 13:15 - Physical Exam General Appearance: alert, no apparent distress Respiratory: lungs clear (grossly) Cardiac/Chest: regular rate, rhythm, other (Sternotomy CDI. ) Abdomen: soft, NT Skin: warm/dry Extremities: swelling (trace) ICD10 Worksheet Patient Problems: Problems Problem Status Onset Acute blood loss anemia Acute Aortic insufficiency Acute Coronary artery disease (CAD) excluded Acute S/P ascending aortic aneurysm repair Acute Ascending aortic aneurysm Chronic
[2018-11-06] MEDS ORDERED: POTASSIUM CL 10 MEQ TAB PO SCH (09:00)
[2018-11-06] MEDS ORDERED: FUROSEMIDE 20 MG TAB PO SCH (09:00)
[2018-11-06] MEDS: METOPROLOL TARTRATE 25 MG TAB PO SCH ×2 (09:23→19:50)
[2018-11-06] MEDS: ACYCLOVIR 400 MG TAB PO SCH ×2 (09:23→19:52)
[2018-11-06] MEDS: PANTOPRAZOLE SODIUM 40 MG TAB PO SCH (09:23)
[2018-11-06] MEDS: SENNOSIDES/DOCUSATE SODIUM TAB PO SCH (09:24)
[2018-11-06] MEDS: HYDROCODONE/APAP 5/325 TAB PO PRN (13:11)
[2018-11-06] MEDS ORDERED: IOPAMIDOL (ISOVUE 370) 100 ML BTL IV ONE (13:29)
[2018-11-06] MEDS ORDERED: SENNOSIDES/DOCUSATE SODIUM TAB PO PRN (21:00)
[2018-11-06] MEDS ORDERED: ALPRAZolam 0.25 MG TAB PO PRN (22:30)
[2018-11-06] MEDS: KETOROLAC 15 MG/1 ML SDV IVP PRN (22:32)
[2018-11-07] MEDS: oxyCODONE IR 5 MG TAB PO PRN ×2 (05:37→12:21)
[2018-11-07] MEDS: HEPARIN 5,000 UNIT/0.5 ML INJ SC SCH (05:37)
--- NOTE | 2018-11-07 08:03 | SOAPPROG ---
SOAP Progress Note Assessment/Plan: Assessment: POD#4 s/p Replacement of Asc Ao w 22mm Hemashield graft; reduction of STJ with AV repair; AtriClip IRWIN Ascending aortic aneurysm 4.1 x 4 cm s/p resection and grafting -assoc AI with STJ reduction and AV repair; intra-op MARGE wo AI -preserved EF at 65% & normal coronaries preop -concern noted in OR regarding possible connective tissue disorder - CTA head r/ o aneurysm this hospitalization and genetic testing as o/p -TCPW and chest tubes out -afib ppx with BB Spontaneous SMA dissection with thrombosis Jul 2018 -Transitioned from IV hep to Plavix - presumably 6 mo course -ASA avoided given history of gastric ulcer Acute expected blood loss anemia -stable wo need of transfusion - DVT PPx w SCDs, heparin Hypervolemic hyponatremia -Responsive to fluid restriction and IV lasix -125->132 with IVF and BID lasix Plan: Baseline postop echo today. Resume plavix. Stop diuresis. Supplement K. Stop bowel regimen. Dispo - Anticipate home without services this afternoon or tomorrow. 11/07/18 07:59 Subjective: Doing ok. Walking independently but a little nervous about going home. +BMs. Objective: Vital Signs Temp Pulse Resp BP Pulse Ox 36.6 C 87 16 117/74 95 11/07/18 05:21 11/07/18 07:18 11/07/18 05:21 11/07/18 05:21 11/07/18 05:21 Laboratory Results 11/05/18 04:50 11/07/18 05:35 11/06/18 11/07/18 11/08/18 05:59 05:59 05:59 Intake Total 2821 1400 Output Total 2380 2100 Balance 441 -700 PT 13.3 SEC (12.0-15.0) 11/02/18 13:15 INR 1.05 (0.83-1.16) 11/02/18 13:15 HR and BP controlled. Borderline suppl O2 req. Excellent diuresis. Approaching admit wt. Ongoing normalization of Na. Physical Exam - Physical Exam General Appearance: alert, no apparent distress Respiratory: lungs clear (grossly) Cardiac/Chest: regular rate, rhythm, other (Sternotomy CDI) Abdomen: non-tender, soft Skin: warm/dry Extremities: other (no visible edema) ICD10 Worksheet Patient Problems: Problems Problem Status Onset Acute blood loss anemia Acute Aortic insufficiency Acute Coronary artery disease (CAD) excluded Acute S/P ascending aortic aneurysm repair Acute Ascending aortic aneurysm Chronic
[2018-11-07] MEDS: METOPROLOL TARTRATE 25 MG TAB PO SCH (08:11)
[2018-11-07] MEDS: PANTOPRAZOLE SODIUM 40 MG TAB PO SCH (08:13)
[2018-11-07] MEDS: ACYCLOVIR 400 MG TAB PO SCH (08:13)
[2018-11-07] MEDS: traMADol 50 MG TAB PO PRN (08:16)
[2018-11-07] MEDS ORDERED: POTASSIUM CL 20 MEQ TAB PO ONE (09:00)
[2018-11-07] MEDS ORDERED: CLOPIDOGREL BISULFATE 75 MG TAB PO SCH (09:15)
[2018-11-07 11:50] VITALS: BP 91/64
--- NOTE | 2018-11-07 15:31 | PDDCSUM ---
Discharge Summary Discharge Summary: DATE OF ADMISSION: 11/02/18 DATE OF DISCHARGE: 11/07/18 DISPOSITION: Home, self-care PRINCIPAL ADMISSION DIAGNOSES: 1. Aneurysmal ascending aorta 2. Mild aortic valve insufficiency PRINCIPAL DISCHARGE DIAGNOSES: 1. Coronary artery disease excluded 2. Cerebrovascular aneursym excluded 3. Status post ascending aortic replacement with a 22 mm Hemashield graft 4. Status post aortic valve repair by reduction of the sinotubular junction 5. Prophylactic AtriClip exclusion of the left atrial appendage 6. Acute expected blood loss anemia 7. Postoperative hypervolemic hyponatremia HISTORY OF PRESENT ILLNESS: 53 yo female with an incidentally discovered aneurysmal ascending aorta associated with mild insufficiency of a trileaflet aortic valve, admitted in advance of elective ascending aortic replacement to complete surgical risk stratification. PERTINENT PAST MEDICAL HISTORY: 1. 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 Ectatic bilateral common iliac arteries, left greater than right 3. PUD attributed to ASA/NSAID use OTHER PAST MEDICAL HISTORY: Chronic pain d/t migraine headaches, neck spasms, and endometriosis; possible TIA while on oral contraceptives; HSV; perimenopausal; insomnia; anxiety MEDICATIONS ON ADMISSION: Acyclovir 400 mg BID, herbal supplements daily, Tylenol ES 1,000 mg q 6h prn, sucralfate 1 gm ACHS prn, Tums 500 mg TID prn, Maxalt 10 mg daily prn, Inderal 10-20 mg TID prn, Oxycodone IR 5 mg q 6hrs prn, Flexeril 10 mg TID prn, , Fioricet 1 tab q 6h prn, Xanax 0.5 mg BID prn ALLERGIES/SENSITIVITIES: Prochlorperazine (Compazine) causing anaphylaxis; sulfonamides causing a rash; Wellbutrin in conjunction with Tramadol causing a seizure, either separately okay; ASA and/or NSAIDs causing gastric ulcer/gastritis CONSULTANTS: none PROCEDURES/IMAGIN/30 (White): Left heart catheterization with selective coronary angiography and left ventriculogram. Access right radial artery. Findings: Right dominant system. Angiographically normal coronaries. LVEF 65%. 11/03 (Bri): Replacement of the ascending aorta with a 22 mm Hemashield graft. Reduction of the sinotubular junction with repair of the aortic valve and elimination of central regurgitation. Prophylactic AtriClip exclusion of the left atrial appendage. 11/06 Head CTA: Normal scan. No evidence of aneurysmal disease or vascular malformation. 11/07 Transthoracic echocardiogram ABBREVIATED HOSPITAL COURSE BY ACTIVE PROBLEM LIST: 1. Aneurysmal ascending aorta with mild AI - Amenable to replacement and repair with dacron interposition grafting. Stable early postop course. No formal antithrombotic prophylaxis required. Afib prophylaxis with BB as tolerated. Precautionary CTA head neg for cerebral aneurysmal disease. Genetic testing for connective tissue disorder to be pursued when recovered from cardiac surgery. 2. Hypervolemic hyponatremia - Responsive to fluid restriction and IV lasix. 3. Acute expected blood loss anemia - Stable. No transfusions needed. DISCHARGE CLINICAL INFORMATION: Sternum grossly stable. Sternotomy CDI, sutured, +Dermabond. HR 90s. SBP 90s-110s. SpO2 92% RA. Wt 2.1 kg above admission at 56.7 kilos. Hgb 11.8, HCT 34.4, Plt 143, Na 134, K 3.4, Cr 0.4 DISCHARGE MEDICATIONS: As on admission with the following adjustments: 1. Hold Propranolol (while on metoprolol) NEW prescriptions: 1. Metoprolol tartrate 12.5 mg BID 2. Refill for Oxycodone IR 5 mg q6 hrs prn incisional pain #30, provided FOLLOW UP APPOINTMENTS: 1. CV surgery: with Dr Gregory at [facility] on 11/14 at 1:00 pm. 2. Cardiology: with Dr Corbin at [facility] within 4-6 weeks. Appointment to be established during surgical visit. FOLLOW UP TESTING: CXR prior to surgical appointment.
== END 2018-11-07 16:18 | disposition home or self-care (01) | DRG 217 ==
LOC: F2N 11:37 → F2W 13:09 → EDSTATUS 11-03 07:15 → F2N 11-03 08:10 → F2W 11-04 09:20
PROVIDERS: ADMIT Thoracic Surgery (Cardiothoracic Vascular Surgery); ATTEND Thoracic Surgery (Cardiothoracic Vascular Surgery)
PROC: B2151ZZ Fluoroscopy of Left Heart using Low Osmolar Contrast (ICD-10-PCS; 2018-11-02)
PROC: 4A023N7 Measurement of Cardiac Sampling and Pressure, Left Heart, Percutaneous Approach (ICD-10-PCS; 2018-11-02)
PROC: B2111ZZ Fluoroscopy of Multiple Coronary Arteries using Low Osmolar Contrast (ICD-10-PCS; 2018-11-02)
PROC: 02L70CK Occlusion of Left Atrial Appendage with Extraluminal Device, Open Approach (ICD-10-PCS; principal; 2018-11-03 08:45)
PROC: 02RX0JZ Replacement of Thoracic Aorta, Ascending/Arch with Synthetic Substitute, Open Approach (ICD-10-PCS; principal; 2018-11-03 08:45)
PROC: 5A1221Z Performance of Cardiac Output, Continuous (ICD-10-PCS; principal; 2018-11-03 08:45)
DX: I71.2 Thoracic aortic aneurysm, without rupture (principal); D62 Acute posthemorrhagic anemia; E87.1 Hypo-osmolality and hyponatremia; E87.70 Fluid overload, unspecified; I35.1 Nonrheumatic aortic (valve) insufficiency; G43.909 Migraine, unspecified, not intractable, without status migrainosus; F41.9 Anxiety disorder, unspecified
CPT/HCPCS: 82435-PO; 82565-PO; 82947-PO; 83605-ER; 84132-PO; 84295-PO; 84520-PO; 85014-ER; 97116-GP; 97162-GP; 97165-GO; 97535-GO; C1768; C1769; J0153; J0171; J0282; J0330; J0690; J1265; J1644; J1815; J1885; J1940; J2001; J2150; J2250; J2260; J2270; J2370; J2405; J2704; J2720; J2765; J2930; J3010; J3475; J3480; P9041; Q9967

== ENCOUNTER → 2018-11-14 | Outpatient (CLI) | payer OTHER | LOC: FIMAGING 11:42 ==